=== PATIENT | female | born 1935 | race Caucasian/White ===

== ENCOUNTER 2016-05-09 17:14 | Emergency (ER) | payer MEDICARE, MEDICAID ==
[~2016-05-09] VITALS: Ht 170.2 cm; Wt 125.0 kg
[~2016-05-09 17:14] MED LIST: CA C1TAB81 PO; CLOT21CR7 VAGINAL; FUR20 PO; METO50TA3 PO; MOT400 PO; MULT-1018 PO; POTA10TA38 PO
[2016-05-09 17:17] VITALS: BP 132/75; PULSE 95; RESP 22; O2SAT 96
[2016-05-09 18:19] LABS: BASOPHILS % (AUTO) 0.2 % (0-3); EOSINOPHILS % (AUTO) 0.2 % (0-5); MONOCYTES % (AUTO) 17.8 % (4-12); Mean Corpuscular Hemoglobin 31.5 pg (27.0-35.0); Mean Corpuscular Volume 95.2 fL (81-100); NEUTROPHILS % (AUTO) 64.8 % (40-74); Platelet Count 146 bil/L (150-400)
--- NOTE | 2016-05-09 18:21 | ED.REPORT ---
HPI-General Illness Date of Service May 09, 2016 ED Provider: Jenny Rodriguez MD The patient is a 80 year old female who presents to the emergency department. She fell last night while trying to get to bed around 2230. She laid on the floor until about 1000 this morning when her family found her. She states that she was unable to get herself off of the ground. She believes she hit her head. She is unsure if she lost consciousness. She is not taking blood thinners.She also mentions that she is more short of breath than normal today. Over the last few days she has also noticed a cough, malaise, and fatigue. She denies fever, chills, chest pain, dysuria, vomiting, diarrhea, unilateral weakness, confusion , speech changes. Nursing Notes Stated Complaint: FALL/POSSIBLE HEAD INJURY Chief Complaint: Multiple Trauma/Fall Nursing Notes Reviewed: Yes Allergies: Coded Allergies: Penicillins (Verified Allergy, Severe, 02/13/09) Scheduled Ca Carb/Vit D3/Mag Ox/Zn Oxide (Tristian Mag Zinc + D Tablet) 1 Each Tablet 2 EACH PO DAILY Clotrimazole 2% (Gyne-Lotrimin 3 2%) 21 Gm Cream.appl 21 GM VAGINAL BID Furosemide (Furosemide) 20 Mg Tab 20 MG PO BID IBUPROFEN-Expunged Drug, Do Not Renew! (Motrin-Expunged Drug, Do Not Renew!) 400 Mg Tablet 400 MG PO q hs Metoprolol Tartrate (Metoprolol Tartrate) 50 Mg Tablet 100 MG PO QAM Metoprolol Tartrate (Metoprolol Tartrate) 50 Mg Tablet 50 MG PO HS Multivitamin (Multi Vitamin Daily) 1 Each Tablet 1 EACH PO DAILY Potassium Chloride (Potassium Chloride) 10 Meq Tab.er.prt 10 MEQ PO DAILY TAKE WITH FOOD General Time Seen by MD: 18:19 Chief Complaint Other (fall) Hx Obtained From: Patient, Other family... Arrived By: Walk-in Sudden in Onset?: Yes Onset Occurred: Yesterday Symptom Duration: Since onset Caused by: Fall on ground Severity: Current: No pain currently Severity: Maximum: No pain Recent Healthcare: No recent doctor visit, No recent hospitalization Similar Sx Previous: No Past Medical History Past Medical History CLL, in remission Chronic lower extremity swelling Past Surgical History Knee surgery Reports: Appendectomy, Cholecystectomy, Tonsillectomy Family History Noncontributory Smoking History Never Smoker Social History Alcohol Use: Denies alcohol use Drug Use: Denies drug use Other Social History: Good social support, Local resident Ambulatory Status Walker Review of Systems Full Review of Systems Constitutional: Reports: Chills (chronic), Fatigue, Malaise, Denies: Fever Respiratory: Reports: Non-productive cough, Shortness of breath Cardiovascular: Denies: Chest pain GI: Denies: Diarrhea, Nausea, Vomiting Female: Denies: Dysuria Musculoskeletal: Reports: Extremity swelling (chronic) Neurologic: Reports: Change LOC (unclear), Denies: Confusion, Focal weakness, Headache, Numbness, Slurred speech, Unable to speak Complete sys rev & neg: except as marked. Physical Exam Vital Signs Vital Signs Date Time Temp Pulse Resp B/P Pulse Ox O2 Delivery O2 Flow Rate FiO2 05/09/16 21:46 94 99/44 100 05/09/16 20:19 37.1 05/09/16 19:01 84 14 99 Room Air 05/09/16 17:17 37.3 95 22 132/75 96 Room Air Initial VS: Reviewed, Vital signs normal ENT: Mucous membranes moist, Conjunctiva normal, No scleral icterus Neck: Supple, Non-tender, Full range of motion Abdomen / GI: Soft, Non-tender, No guarding, No rebound, No distention Extremities: Vascular intact, Neuro intact, No tenderness Skin: Warm, Dry, No cyanosis Psychiatric: Mood/affect normal, Behavior normal, Normal thought content General/Constitutional: Awake, Alert Globally weak Head / Eyes: Normocephalic, PERRL, EOMI Conjunctiva / Sclera: Positive: Injected left, Injected right Small abrasion on left left eyebrow Respiratory / Chest: Breath sounds = bilat, No respiratory distress Cardiovascular: Heart rate NL, Regular rhythm, Heart sounds NL, No murmurs, No rubs, Cap refill not delayed, Peripheral circulation NL Lower Ext Edema: Positive: Bilateral 2+ Wrist / Hand: Neurologic intact, Vascular intact There is a bruise on the dorsum of her right hand and right middle finger. Neurologic: Oriented X3, Speech NL, No motor deficits, No sensory deficits Interpretation & Diagnostics Interpretation & Diagnostics: Negative for influenza A and B Lab Results Interpretation Result Diagram: 05/09/16 1800 05/09/16 1800 Test 05/09/16 18:00 05/09/16 20:18 White Blood Count 4.1th/mm3 (3.8-10.1) Red Blood Count 3.52mil/mm3 (3.90-5.20) Hemoglobin 11.1g/dL (12.0-15.6) Hematocrit 33.5% (35.0-46.0) Mean Corpuscular Volume 95.2fL (81-100) Mean Corpuscular Hemoglobin 31.5pg (27.0-35.0) Mean Corpuscular Hemoglobin Concent 33.1% (32.0-37.0) Red Cell Distribution Width 14.7% (12.3-15.4) Platelet Count 146bil/L (150-400) Neutrophils (%) (Auto) 64.8% (40-74) Lymphocytes (%) (Auto) 16.3% (14-46) Monocytes (%) (Auto) 17.8% (4-12) Eosinophils (%) (Auto) 0.2% (0-5) Basophils (%) (Auto) 0.2% (0-3) Sodium Level 138mEq/L (134-144) Potassium Level 4.2mEq/L (3.5-5.2) Chloride Level 100mEq/L (97-108) Carbon Dioxide Level 25mmol/L (18-29) Blood Urea Nitrogen 20mg/dL (8-27) Creatinine 0.99mg/dL (0.57-1.00) Estimat Glomerular Filtration Rate 78mL/min (>59) Glucose Level 106mg/dL (60-99) Calcium Level 8.4mg/dL (8.5-10.1) Magnesium Level 1.9mg/dL (1.6-2.6) Total Bilirubin 0.8mg/dL (0.0-1.2) Aspartate Amino Transf (AST/SGOT) 26U/L (0-50) Alanine Aminotransferase (ALT/SGPT) 15U/L (0-32) Alkaline Phosphatase 61U/L (25-165) Total Creatine Kinase 189U/L (21-215) Creatine Kinase MB 2.0ng/mL (0.0-5.3) Creatine Kinase MB % 1.1% (0.0-5.0) Troponin T < 0.010ug/L (0.0-0.011) Pro-B-Type Natriuretic Peptide 136.4pg/mL (0-738) Total Protein 6.1g/dL (6.4-8.4) Albumin 3.5g/dL (3.4-5.0) Hold Trejo Top Tube Received (Received) Urine Color Yellow (YELLOW) Urine Appearance Clear (CLEAR,HAZY) Urine pH 6.0 (5.0-8.0) Urine Specific [place] 1.020 (1.003-1.035) Urine Protein Tracemg/dL (NEG,TRACE) Urine Glucose (UA) Negativemg/dL (NEGATIVE) Urine Ketones Tracemg/dL (NEGATIVE) Urine Occult Blood Negative (NEGATIVE) Urine Nitrite Negative (NEGATIVE) Urine Bilirubin Negative (NEGATIVE) Urine Urobilinogen Normalmg/dL (NORMAL) Urine Leukocyte Esterase Negative (NEGATIVE) Urine RBC 0-2/hpf (0-2) Urine WBC 0-5/hpf (0-5) Urine Epithelial Cells None/hpf (NONE-MOD) Urine Crystals None seen (NONE SEEN) Urine Bacteria Few/hpf (NONE-FEW) Urine Hyaline Casts None/lpf (NONE) Urine Granular Casts None seen (NONE SEEN) Urine Waxy Casts None seen (NONE SEEN) Urine Red Blood Cell Casts None seen (NONE SEEN) Urine White Blood Cell Casts None seen (NONE SEEN) Urine Mucus Present (None Seen) Urine Trichomonas None seen (NONE SEEN) Urine Yeast None (NONE SEEN) Urinalysis Comment None Urine Culture Reflexed Not indicated ECG Interpretation ECG Interpretation: 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 Dictated by: Priya Villar M.D. on 05/09/2016 at 18:20 Interpretation / Wet Read by: Interpret - Radiologist CT Head Interpretation IMPRESSION: 1. No acute intracranial findings. Dictated by: Priya Villar M.D. on 05/09/2016 at 20:13 Study: Head CT no contrast Interpretation / Wet Read by: Interpret - Radiologist Re-Eval/Medical Decision Source of Hx: Old records Time of Eval: 21:17 Re-Evaluation/Progress Note: Rechecked the patient. Discussed results, diagnosis, and plan for discharge. All questions were addressed. Counseled Regarding: Diagnosis, Lab results, Need for follow-up, When/why to return to ED Discharge & Departure Primary Impression: Generalized weakness Ruled Out: Pneumonia, Heart attack, Stroke, Influenza, Renal failure, Urinary tract infection, Electrolyte abnormality, Rhabdomyolysis Disposition: Home Discharge Condition All VS Reviewed: Yes Condition: Stable Additional Instructions: Thank you for entrusting us with your care today. Your workup today is reassuring. There is no sign of a stroke, heart attack, pneumonia, electrolyte abnormality, renal failure, or urinary trace infection. Use Ibuprofen and/or Tylenol as needed for your discomfort. Make sure to drink plenty of fluids. Followup with your regular doctor next week. Please return to the emergency department for any new or concerning symptoms. Referrals: Tate Syed ND (PCP) Scribe Attestation Portions of this note were transcribed by Ellen Leach. I, Dr. Rodriguez personally performed the history, physical exam and medical decision-making; I reviewed and confirmed the accuracy of the information in the transcribed note. Signed by:Jan Shin, 05/09/2016 and 2124. copies to: Tate Syed ND, Shawna L MD May 09, 2016 18:21 Ellen Leach May 09, 2016 18:24
--- NOTE | 2016-05-09 18:22 | DRSVH ---
PROCEDURE: X-RAY CHEST ONE VIEW, PORTABLE ([id number]) INDICATIONS: sob TECHNIQUE: One view of the chest was acquired. COMPARISON: None. FINDINGS: Surgical changes and devices: Surgical clips are projected over the epigastric region. Lungs and pleura: No pleural effusions or pneumothorax. Lungs are clear. Mediastinum: Mediastinal contours appear normal. Heart size is normal. Bones and chest wall: No suspicious bony lesions. Overlying soft tissues appear unremarkable. IMPRESSION: No acute cardiopulmonary findings. Dictated by: Priya Villar M.D. on 05/09/2016 at 18:20 Approved by: Priya Villar M.D. on 05/09/2016 at 18:20
[2016-05-09 19:01] VITALS: PULSE 84; RESP 14; O2SAT 99
[2016-05-09 19:08] LABS: Creatine Kinase 189 U/L (21-215); Magnesium 1.9 mg/dL (1.6-2.6)
[2016-05-09 19:09] LABS: TROPONIN T < 0.010 ug/L (0.0-0.011)
--- NOTE | 2016-05-09 20:15 | DRSVH ---
PROCEDURE: CT BRAIN WITHOUT CONTRAST ([id number]) INDICATIONS: fall, hit head TECHNIQUE: Noncontrast 4.5 mm thick angled axial sections acquired from the foramen magnum to the vertex, with c oronal reformats. COMPARISON: None. FINDINGS: Image quality: CSF spaces: Basal cisterns are patent. No extra-axial fluid collections. The ventricles are symmet joyce in size and shape. Brain: No intracranial bleeds or masses. There is cerebral volume loss for age, with resultant vent ricular and sulcal prominence. There are periventricular and deep white matter chronic small vessel ischemic changes. There is intracranial internal carotid artery atherosclerosis. Skull and face: Calvarium and visualized facial bones appear intact, without suspicious lesions. Sinuses: Visualized sinuses and mastoids are clear. IMPRESSION: 1. No acute intracranial findings. Dictated by: Priya Villar M.D. on 05/09/2016 at 20:13 Approved by: Priya Villar M.D. on 05/09/2016 at 20:13
[2016-05-09 21:08] LABS: COLOR,URINE YELLOW (YELLOW)
[2016-05-09 21:09] LABS: APPEARANCE,URINE CLEAR (CLEAR,HAZY); OCCULT BLOOD,URINE NEGATIVE (NEGATIVE); UROBILINOGEN,URINE NORMAL (NORMAL)
[2016-05-09 21:46] VITALS: BP 99/44; PULSE 94; O2SAT 100
== END 2016-05-09 21:47 | disposition home or self-care (01) ==
LOC: SED 17:14
DX: R53.1 Weakness (principal); S60.031A Contusion of right middle finger without damage to nail, initial encounter; S00.212A Abrasion of left eyelid and periocular area, initial encounter; W18.39XA Other fall on same level, initial encounter; Y93.89 Activity, other specified; Y92.89 Other specified places as the place of occurrence of the external cause; Y99.8 Other external cause status; R06.02 Shortness of breath; R05 Cough; R53.81 Other malaise; R53.83 Other fatigue; Z88.0 Allergy status to penicillin